=== PATIENT | female | born 1965 | race Caucasian/White ===

== ENCOUNTER 2019-10-18 15:00 | Inpatient (IN) | payer OTHER ==
[~2019-10-18] VITALS: Ht 162.6 cm; Wt 59.6 kg
[~2019-10-18 15:00] MED LIST: Z.0.CRESTOR10 MG PO; Z.0.EFFEXOR XR150 MG PO
[2019-10-18] MEDS ORDERED: SODIUM CHLORIDE 0.9% 1000ML 1,000 ML IV STA ×3 (15:32→17:17)
[2019-10-18] MEDS ORDERED: OCTREOTIDE ACETATE 0.05 MG/ML AMP IV STA (15:42)
[2019-10-18] MEDS ORDERED: PANTOPRAZOLE 40 MG 10ML VIAL IV STA (15:42)
[2019-10-18] MEDS ORDERED: SODIUM CHLORIDE 0.9% 1000ML 1,000 ML ONE ×2 (15:49→17:25)
--- NOTE | 2019-10-18 15:49 | Emergency Department Note ---
History of Present Illnes History of Present Illness Chief Complaint: Abdominal Complaints History of Present Illness This is a 54 year old female . c/o vomiting bright red blood w/ clots this am several times - c/o generalized weakness light headed PATIENT IN FROM HOME WITH COMPLAINTS OF WAKING UP DIZZY AND SHORT OF BREATH, PATIENT STATES SHE HAD BLACK STOOLS X 2 TODAY, ALSO WITH COMPLAINTS OF 5 EPISODES OF VOMITING BRIGHT RED BLOOD AND BLOOD CLOTS. DENIES PAIN. PATIENT ALERT AND ORIENTED, RESP EVEN AND NONLABORED, APPEARS IN NO DISTRESS Historian: Patient Arrival Mode: Car Onset (how long ago): day(s) (today) Radiation: non-radiation, back, neck, extremity, abdomen, periumbilical, flank, proximal, distal, other Onset quality: sudden Duration (how long): day(s) (today) Progression: unchanged Context: recent illness, recent surgery, recent immobilization, recent travel, trauma/injury, new medications, hx of DVT/PE, non-compliance w/ medications, other Relieving factors: none Exacerbating factors: none Associated symptoms: nausea/vomiting, weakness Treatments prior to arrival: none Risk factors: sts takes asprin / alieve daily for headaches (HEATHER LOMELI NP) Past Medical/Family History Physician Review I have reviewed the patient's past medical and family history. Any updates have been documented here. (HEATHER LOMELI NP) Past Medical History Recent Fever: No Clinical Suspicion of Infectio: No New/Unexplained Change in Ment: No Past Medical History: Anxiety, Depression, Other Mental Illness, Hyperlipedemia Other Medical History: HIGH CHOLESTEROL, BIPOLAR HIATAL HERNIA Past Surgical History: Hernia Repair Other Surgery: C/S X 2, HIATIAL HERNIA (HEATHER LOMELI NP) Social History Smoking Cessation: Current some day smoker Counseling Performed: No Alcohol Use: None Any Illegal Drug Use: Yes (MARIJUANA) TB Exposure/Symptoms: No Physically hurt or threatened: No (HEATHER LOMELI NP) Family History Family history of heart diseas: No (HEATHER LOMELI NP) Other Last Tetanus: UTD Any Pre-Existing Lines (PICC,: No Is patient up to date on immun: No Last Flu: UTD Last Pneumovax: OOD (HEATHER LOMELI NP) Review of Systems Review of Systems Constitutional: weakness EENTM: no symptoms Cardiovascular: other (hypotensive); chest pain, edema, palpitations, syncope Respiratory: no symptoms Gastrointestinal: no symptoms Genitourinary: no symptoms Musculoskeletal: no symptoms Neurological: weakness; headache Psychological: no symptoms Endocrine: no symptoms Hematological/Lymphatic: no symptoms Review of other systems All other systems reviewed and negative. (HEATHER LOMELI BUSHING PRESS OPERATOR) Physical Exam Related Data Allergies: Coded Allergies: No Known Drug Allergies (Verified Allergy, Mild, 05/17/11) Triage Vital Signs Vital Signs Date Time Temp Pulse Resp B/P (MAP) Pulse Ox O2 Delivery O2 Flow Rate FiO2 10/18/19 15:00 97.8 84 20 98/67 100 Vital signs reviewed: Yes (HEATHER LOMELI BUSHING PRESS OPERATOR) Physical Exam CONSTITUTIONAL Constitutional: well-developed, well-nourished HENT HENT: normocephalic, atraumatic, oropharynx clear/moist, nose normal HENT L/R: left ext ear normal, right ext ear normal EYES Eyes: PERRL, conjunctivae normal NECK Neck: ROM normal PULMONARY Pulmonary: effort normal, breath sounds normal CARDIOVASCULAR Cardiovascular: regular rhythm, heart sounds normal, capillary refill normal, normal rate GASTROINTESTINAL Abdominal: soft, nontender, bowel sounds normal GENITOURINARY Genitourinary: exam deferred SKIN Skin: dry, pale, other (cool) MUSCULOSKELETAL Musculoskeletal: ROM normal NEUROLOGICAL Neurological: alert, oriented x 3, no gross motor or sensory deficits PSYCHOLOGICAL Psychological: mood/affect normal, judgement normal (HEATHER LOMELI BUSHING PRESS OPERATOR) Results Laboratory Laboratory Laboratory Tests Test 10/18/19 17:50 10/18/19 16:42 10/18/19 15:52 10/18/19 15:30 White Blood Count 13.43 x10e3/uL (4.8-10.8) 10.31 x10e3/uL (4.8-10.8) Red Blood Count 2.52 x10e6/uL (3.6-5.1) 3.35 x10e6/uL (3.6-5.1) Hemoglobin 7.5 g/dL (12.0-16.0) 9.9 g/dL (12.0-16.0) Hematocrit 23.9 % (34.2-44.1) 31.5 % (34.2-44.1) Mean Corpuscular Volume 94.8 fL (81-99) 94.0 fL (81-99) Mean Corpuscular Hemoglobin 29.8 pg (28-32) 29.6 pg (28-32) Mean Corpuscular Hemoglobin Concent 31.4 g/dL (31-35) 31.4 g/dL (31-35) Red Cell Distribution Width 14.1 % (11.7-14.4) 14.2 % (11.7-14.4) Platelet Count 177 x10e3/uL (140-360) 283 x10e3/uL (140-360) Neutrophils (%) (Auto) 86.7 % (38.7-80.0) 61.9 % (38.7-80.0) Lymphocytes (%) (Auto) 8.8 % (18.0-39.1) 31.2 % (18.0-39.1) Monocytes (%) (Auto) 3.6 % (4.4-11.3) 4.9 % (4.4-11.3) Eosinophils (%) (Auto) 0.1 % (0.0-6.0) 1.3 % (0.0-6.0) Basophils (%) (Auto) 0.2 % (0.0-1.0) 0.4 % (0.0-1.0) Neutrophils # (Auto) 11.6 (2.1-6.9) 6.4 (2.1-6.9) Lymphocytes # (Auto) 1.2 (1.0-3.2) 3.2 (1.0-3.2) Monocytes # (Auto) 0.5 (0.2-0.8) 0.5 (0.2-0.8) Eosinophils # (Auto) 0.0 (0.0-0.4) 0.1 (0.0-0.4) Basophils # (Auto) 0.0 (0.0-0.1) 0.0 (0.0-0.1) Absolute Immature Granulocyte (auto 0.08 x10e3/uL (0-0.1) 0.03 x10e3/uL (0-0.1) Urine Color Yellow (YELLOW) Urine Clarity Clear (CLEAR) Urine pH 5 (5 - 7) Urine Specific Ransom 1.020 (1.010-1.025) Urine Protein Negative (NEGATIVE) Urine Glucose (UA) Negative (NEGATIVE) Urine Ketones Negative (NEGATIVE) Urine Blood Small (NEGATIVE) Urine Nitrite Negative (NEGATIVE) Urine Bilirubin Negative (NEGATIVE) Urine Urobilinogen 0.2 mg/dL (0.2 - 1) Urine Leukocyte Esterase Negative (NEGATIVE) Urine RBC 0-5 /HPF (0-5) Urine WBC None /HPF (0-5) Urine Epithelial Cells Rare /LPF (NONE) Urine Bacteria Moderate /HPF (NONE) Urine Hyaline Casts 0-1 (0-1) Prothrombin Time 12.7 seconds (11.9-14.5) Prothromb Time International Ratio 0.90 Activated Partial Thromboplast Time 20.8 seconds (23.8-35.5) Sodium Level 138 mmol/L (136-145) Potassium Level 3.8 mmol/L (3.5-5.1) Chloride Level 105 mmol/L (98-107) Carbon Dioxide Level 19 mmol/L (22-29) Anion Gap 17.8 mmol/L (8-16) Blood Urea Nitrogen 41 mg/dL (7-26) Creatinine 0.86 mg/dL (0.57-1.11) Estimat Glomerular Filtration Rate > 60 ML/MIN (60-) BUN/Creatinine Ratio 48 (6-25) Glucose Level 216 mg/dL (74-118) Calcium Level 8.6 mg/dL (8.4-10.2) Total Bilirubin 0.5 mg/dL (0.2-1.2) Aspartate Amino Transf (AST/SGOT) 18 IU/L (5-34) Alanine Aminotransferase (ALT/SGPT) 11 IU/L (0-55) Alkaline Phosphatase 54 IU/L (40-150) Creatine Kinase 93 IU/L (29-168) Creatine Kinase MB 1.70 ng/mL (0-5.0) Troponin I 0.002 ng/mL (0-0.300) Total Protein 6.4 g/dL (6.5-8.1) Albumin 3.6 g/dL (3.5-5.0) Globulin 2.8 g/dL (2.3-3.5) Albumin/Globulin Ratio 1.3 (0.8-2.0) Amylase Level 48 U/L (25-125) Lipase 11 U/L (8-78) Laboratory Tests Test 5/19/20 16:42 10/18/19 15:52 10/18/19 15:30 Urine Color Yellow (YELLOW) Urine Clarity Clear (CLEAR) Urine pH 5 (5 - 7) Urine Specific Ransom 1.020 (1.010-1.025) Urine Protein Negative (NEGATIVE) Urine Glucose (UA) Negative (NEGATIVE) Urine Ketones Negative (NEGATIVE) Urine Blood Small (NEGATIVE) Urine Nitrite Negative (NEGATIVE) Urine Bilirubin Negative (NEGATIVE) Urine Urobilinogen 0.2 mg/dL (0.2 - 1) Urine Leukocyte Esterase Negative (NEGATIVE) Urine RBC 0-5 /HPF (0-5) Urine WBC None /HPF (0-5) Urine Epithelial Cells Rare /LPF (NONE) Urine Bacteria Moderate /HPF (NONE) Urine Hyaline Casts 0-1 (0-1) White Blood Count 10.31 x10e3/uL (4.8-10.8) Red Blood Count 3.35 x10e6/uL (3.6-5.1) Hemoglobin 9.9 g/dL (12.0-16.0) Hematocrit 31.5 % (34.2-44.1) Mean Corpuscular Volume 94.0 fL (81-99) Mean Corpuscular Hemoglobin 29.6 pg (28-32) Mean Corpuscular Hemoglobin Concent 31.4 g/dL (31-35) Red Cell Distribution Width 14.2 % (11.7-14.4) Platelet Count 283 x10e3/uL (140-360) Neutrophils (%) (Auto) 61.9 % (38.7-80.0) Lymphocytes (%) (Auto) 31.2 % (18.0-39.1) Monocytes (%) (Auto) 4.9 % (4.4-11.3) Eosinophils (%) (Auto) 1.3 % (0.0-6.0) Basophils (%) (Auto) 0.4 % (0.0-1.0) Neutrophils # (Auto) 6.4 (2.1-6.9) Lymphocytes # (Auto) 3.2 (1.0-3.2) Monocytes # (Auto) 0.5 (0.2-0.8) Eosinophils # (Auto) 0.1 (0.0-0.4) Basophils # (Auto) 0.0 (0.0-0.1) Absolute Immature Granulocyte (auto 0.03 x10e3/uL (0-0.1) Prothrombin Time 12.7 seconds (11.9-14.5) Prothromb Time International Ratio 0.90 Activated Partial Thromboplast Time 20.8 seconds (23.8-35.5) Sodium Level 138 mmol/L (136-145) Potassium Level 3.8 mmol/L (3.5-5.1) Chloride Level 105 mmol/L (98-107) Carbon Dioxide Level 19 mmol/L (22-29) Anion Gap 17.8 mmol/L (8-16) Blood Urea Nitrogen 41 mg/dL (7-26) Creatinine 0.86 mg/dL (0.57-1.11) Estimat Glomerular Filtration Rate > 60 ML/MIN (60-) BUN/Creatinine Ratio 48 (6-25) Glucose Level 216 mg/dL (74-118) Calcium Level 8.6 mg/dL (8.4-10.2) Total Bilirubin 0.5 mg/dL (0.2-1.2) Aspartate Amino Transf (AST/SGOT) 18 IU/L (5-34) Alanine Aminotransferase (ALT/SGPT) 11 IU/L (0-55) Alkaline Phosphatase 54 IU/L (40-150) Creatine Kinase 93 IU/L (29-168) Creatine Kinase MB 1.70 ng/mL (0-5.0) Troponin I 0.002 ng/mL (0-0.300) Total Protein 6.4 g/dL (6.5-8.1) Albumin 3.6 g/dL (3.5-5.0) Globulin 2.8 g/dL (2.3-3.5) Albumin/Globulin Ratio 1.3 (0.8-2.0) Amylase Level 48 U/L (25-125) Lipase 11 U/L (8-78) Laboratory Tests Test 10/18/19 15:52 10/18/19 15:30 White Blood Count 10.31 x10e3/uL (4.8-10.8) Red Blood Count 3.35 x10e6/uL (3.6-5.1) Hemoglobin 9.9 g/dL (12.0-16.0) Hematocrit 31.5 % (34.2-44.1) Mean Corpuscular Volume 94.0 fL (81-99) Mean Corpuscular Hemoglobin 29.6 pg (28-32) Mean Corpuscular Hemoglobin Concent 31.4 g/dL (31-35) Red Cell Distribution Width 14.2 % (11.7-14.4) Platelet Count 283 x10e3/uL (140-360) Neutrophils (%) (Auto) 61.9 % (38.7-80.0) Lymphocytes (%) (Auto) 31.2 % (18.0-39.1) Monocytes (%) (Auto) 4.9 % (4.4-11.3) Eosinophils (%) (Auto) 1.3 % (0.0-6.0) Basophils (%) (Auto) 0.4 % (0.0-1.0) Neutrophils # (Auto) 6.4 (2.1-6.9) Lymphocytes # (Auto) 3.2 (1.0-3.2) Monocytes # (Auto) 0.5 (0.2-0.8) Eosinophils # (Auto) 0.1 (0.0-0.4) Basophils # (Auto) 0.0 (0.0-0.1) Absolute Immature Granulocyte (auto 0.03 x10e3/uL (0-0.1) Prothrombin Time 12.7 seconds (11.9-14.5) Prothromb Time International Ratio 0.90 Activated Partial Thromboplast Time 20.8 seconds (23.8-35.5) Lab results reviewed: Yes (HEATHER LOMELI BUSHING PRESS OPERATOR) Imaging Impressions Procedure: [id number] DX/CHEST SINGLE (PORTABLE) Exam Date: 10/18/19 Exam Time: 1541 REPORT STATUS: Signed TECHNIQUE: Frontal view of the chest. INDICATION: ^ERMD ORDER ^[id number] ^1542 ^Y COMPARISON: None. IMPRESSION: Lines and hardware: None. Heart and mediastinum: Unremarkable. Lungs and pleura: No focal airspace consolidation. No pleural effusion. No pneumothorax. Soft tissues and bones: No acute abnormality. Signed by: Buster Carrasco MD on 10/18/2019 4:09 PM Dictated By: BUSTER CARRASCO DO 08 Transcribed By: MIRNA on 10/18/19 160 (HEATHER LOMELI NP) Procedures 12 Lead ECG Interpretation Mobile Phone Salesperson: Interpreted by ED physician (dr colmenares) Date: October 18, 2019 Time: 16:12 Prior VOLLEYBALL PLAYER tracings: reviewed Rhythm: sinus rhythm Rate: normal BPM: 84 QRS axis: normal Clinical Impression: normal ECG (HEATHER LOMELI BUSHING PRESS OPERATOR) Critical Care Time Total Critical Care Time (min): 35 Critcal care necessary due to: circulatory failure Subsequent provider I assumed direction of critical care for this patient from another provider of my specialty. Comments dr colmenares (HEATHER LOMELI BUSHING PRESS OPERATOR) Assessment & Plan Reassessment Reassessment 54 f presented to ed c/o vomiting blood several times this am generalized weakness light headed - Dr colmenares un eval pt status - lab type screen ekg ordered - pt medicated w/ protonix 80mg / ns 2 liter bolus /octreotide (HEATHER LOMELI NP) Assessment & Plan Final Impression: (1) GI bleed Assessment & Plan Dr Colmenares in eval pt status discussed lab results plan of care and need for admit Dr Colmenares spoke w/ Dr Jun Tijerina will admit - Spoke w/ Dr Karishma Tijerina will consult (HEATHER LOMELI NP) Depart Disposition: ADMITTED Last Vital Signs Date Time Temp Pulse Resp B/P (MAP) Pulse Ox O2 Delivery O2 Flow Rate FiO2 10/18/19 15:00 97.8 84 20 98/67 100 (HEATHER LOMELI BUSHING PRESS OPERATOR) Home Meds Discontinued Reported Medications Rosuvastatin Calcium (Crestor) 10 Mg Tablet, 10 MG PO RDAILY 05/16/11 Venlafaxine Hcl (Effexor Xr) 150 Mg Cap.sr.24h, 150 MG PO RDAILY 05/16/11 Medications in the ED Sodium Chloride 1,000 ml @ 0 mls/hr Q0M STAT IV ; Start 10/18/19 at 15:32; Stop 10/18/19 at 15:33 Pantoprazole Sodium 40 mg ONCE ONCE IV ; Start 10/18/19 at 16:00; Stop 10/18/19 at 16:01 (HEATHER LOMELI BUSHING PRESS OPERATOR) Physician Attestation Provider Attestation The patient's history, exam findings, diagnostics, and a summary of any interventions or procedures was reviewed in detail with our GISSELL. I personally interviewed and examined the patient, and I have reviewed and agree with the HPI andexam. She has no significant PMHx but does take Excedrin daily for aches/pa ins. My personal exam shows no abd tenderness, CV- RRR, L- CTA bilat. I confirm the diagnosis as documented by the GISSELL. I have reviewed and agree with the care plan articulated in the disposition section. Pt did drop BP which responded to IVF's. Repeat CBC shows significant drop in HgB - my concern is for bleeding ulcer (gastric or esophageal) so I gave Protonix IV and Octreotide bolus and IV drip, discussed with Dr Jun Tijerina and Dr Karishma Tijerina and we all agree that pt requires blood transfusion. Admit IMCU (FARHAT COLMENARES MD) HEATHER LOMELI NP October 18, 2019 15:49 FARHAT COLMENARES MD October 22, 2019 07:53
[2019-10-18] MEDS ORDERED: PANTOPRAZOLE 40 MG 10ML VIAL IV ONE (16:00)
--- NOTE | 2019-10-18 16:12 | Diagnostic Imaging Report ---
TECHNIQUE: Frontal view of the chest. INDICATION: ^ERMD ORDER ^[id number] ^1542 ^Y COMPARISON: None. IMPRESSION: Lines and hardware: None. Heart and mediastinum: Unremarkable. Lungs and pleura: No focal airspace consolidation. No pleural effusion. No pneumothorax. Soft tissues and bones: No acute abnormality. Signed by: Buster Carrasco MD on 10/18/2019 4:09 PM
[2019-10-18 16:23] LABS: BASOPHILS % 0.4 % (0.0-1.0); EOSINOPHILS # (AUTO) 0.1 (0.0-0.4); EOSINOPHILS % 1.3 % (0.0-6.0); HEMATOCRIT 31.5 % (34.2-44.1); HEMOGLOBIN 9.9 g/dL (12.0-16.0); LYMPHOCYTES # (AUTO) 3.2 (1.0-3.2); LYMPHOCYTES % 31.2 % (18.0-39.1); MEAN CORPUSCULAR HEMOGLOBIN 29.6 pg (28-32); MEAN CORPUSCULAR HGB CONC 31.4 g/dL (31-35); MONOCYTES # (AUTO) 0.5 (0.2-0.8); MONOCYTES % 4.9 % (4.4-11.3); NEUTROPHILS # (AUTO) 6.4 (2.1-6.9); NEUTROPHILS % 61.9 % (38.7-80.0); PLATELET COUNT 283 x10e3/uL (140-360); RED BLOOD COUNT 3.35 x10e6/uL (3.6-5.1); RED CELL DISTRIBUTION WIDTH 14.2 % (11.7-14.4)
[2019-10-18 16:35] LABS: INR 0.9; PROTHROMBIN TIME 12.7 seconds (11.9-14.5)
[2019-10-18 16:37] LABS: PARTIAL THROMBOPLASTIN TIME 20.8 seconds (23.8-35.5)
[2019-10-18] MEDS: OCTREOTIDE ACETATE 500 MCG in SODIUM CHLORIDE 0.9% 250ML 249 ML IV SCH (16:45)
[2019-10-18 16:47] LABS: ALANINE AMINOTRANSFERASE 11 IU/L (0-55); ALBUMIN 3.6 g/dL (3.5-5.0); ALBUMIN/GLOBULIN RATIO 1.3 (0.8-2.0); ALKALINE PHOSPHATASE 54 IU/L (40-150); AMYLASE 48 U/L (25-125); ANION GAP 17.8 mmol/L (8-16); BLOOD UREA NITROGEN 41 mg/dL (7-26); BUN/CREATININE RATIO 48 (6-25); CALCIUM 8.6 mg/dL (8.4-10.2); CARBON DIOXIDE 19 mmol/L (22-29); CHLORIDE 105 mmol/L (98-107); CREATINE KINASE 93 IU/L (29-168); CREATININE, SERUM 0.86 mg/dL (0.57-1.11); EST GLOMERULAR FILTRATION RATE > 60 ML/MIN (60-); GLUCOSE 216 mg/dL (74-118); LIPASE 11 U/L (8-78); POTASSIUM 3.8 mmol/L (3.5-5.1); SODIUM 138 mmol/L (136-145)
[2019-10-18 17:01] LABS: BILIRUBIN,URINE NEGATIVE (NEGATIVE); CLARITY,URINE CLEAR (CLEAR); COLOR,URINE YELLOW (YELLOW); KETONES,URINE NEGATIVE (NEGATIVE); LEUKOCYTE ESTERASE ,URINE NEGATIVE (NEGATIVE); NITRITE,URINE NEGATIVE (NEGATIVE); PROTEIN,URINE DIPSTICK NEGATIVE (NEGATIVE); URINE UROBILINOGEN 0.2 mg/dL (0.2 - 1)
[2019-10-18 17:10] LABS: BACTERIA,URINE MODERATE /HPF; EPITHELIAL CELLS,URINE RARE /LPF; HYALINE CASTS 0-1 (0-1); RBC,URINE 0-5 /HPF (0-5)
[2019-10-18 17:59] LABS: BASOPHILS % 0.2 % (0.0-1.0); EOSINOPHILS % 0.1 % (0.0-6.0); HEMATOCRIT 23.9 % (34.2-44.1); HEMOGLOBIN 7.5 g/dL (12.0-16.0); LYMPHOCYTES # (AUTO) 1.2 (1.0-3.2); LYMPHOCYTES % 8.8 % (18.0-39.1); MEAN CORPUSCULAR HEMOGLOBIN 29.8 pg (28-32); MEAN CORPUSCULAR HGB CONC 31.4 g/dL (31-35); MEAN CORPUSCULAR VOLUME 94.8 fL (81-99); MONOCYTES # (AUTO) 0.5 (0.2-0.8); MONOCYTES % 3.6 % (4.4-11.3); NEUTROPHILS # (AUTO) 11.6 (2.1-6.9); NEUTROPHILS % 86.7 % (38.7-80.0); PLATELET COUNT 177 x10e3/uL (140-360); RED BLOOD COUNT 2.52 x10e6/uL (3.6-5.1); RED CELL DISTRIBUTION WIDTH 14.1 % (11.7-14.4)
--- NOTE | 2019-10-18 18:32 | NUR ---
pt signed consent for blood transfusion
[2019-10-18] MEDS ORDERED: SODIUM CHLORIDE 0.9% 250ML 250 ML IV ONE (19:00)
--- OUTSIDE RECORDS SUMMARY | 2019-10-18 19:16 | XMS REPORT ---
Author Author [facility] t Organization [facility] Address [address] [place] [id number] Phone Unavailable Care Team Providers Care Retail Sales Clerk Name Role Phone Emily COLMENARES Attphys Unavailable Problems This patient has no known problems. Allergies, Adverse Reactions, Alerts This patient has no known allergies or adverse reactions. Medications This patient has no known medications. Procedures This patient has no known procedures. Results Test Description Test Time Test Comments Results Result Comments Source CHEST SINGLE (PORTABLE) 2019-10-18 16:07:00 [place] [address] Patient Name: MARTY EDMONDS MR #: [id number] : 1965 Age/Sex: 54/F Req #: [id number] Adm Physician: Ordered by: HEATHER LOMELI COORDINATOR OF GENETIC SERVICES Report #: [id number] Location: ER Room/Bed: Procedure: [id number] DX/CHEST SINGLE (PORTABLE) Exam Date: 10/18/19 Exam Time: 1541 REPORT STATUS: Signed TECHNIQUE: Frontal view of the chest. INDICATION: ERMD ORDER [id number] 1542 Y COMPARISON: None. IMPRESSION: Lines and hardware: None. Heart and mediastinum: Unremarkable. Lungs and pleura: No focal airspace consolidation. No pleural effusion. No pneumothorax. Soft tissues and bones: No acute abnormality. Signed by: Buster Carrasco MD on 10/18/2019 4:09 PM Dictated By: BUSTER CARRASCO DO 1600 Transcribed By: MIRNA on 10/18/19 1604 COPY TO: HEATHER LOMELI NP
[2019-10-18 19:30] VITALS: BP 110/51
[2019-10-18 20:00] VITALS: BP 102/58
[2019-10-18 21:00] VITALS: BP 116/64
[2019-10-18] MEDS: SODIUM CHLORIDE 0.9% 1000ML 1,000 ML IV SCH (21:25)
[2019-10-18] MEDS: PANTOPRAZOLE 40 MG 10ML VIAL IV SCH (21:25)
[2019-10-18 21:59] VITALS: BP 110/51
[2019-10-18 22:00] VITALS: BP 113/69
[2019-10-18 23:00] VITALS: BP 118/59
[2019-10-19] VITALS (21 sets, daily range): BP systolic 105–133; BP diastolic 46–79
[2019-10-19] MEDS ORDERED: OCTREOTIDE ACETATE 1 ML ONE (03:06)
[2019-10-19] MEDS ORDERED: SODIUM CHLORIDE 0.9% 250ML 250 ML ONE (03:07)
[2019-10-19] MEDS: SODIUM CHLORIDE 0.9% 1000ML 1,000 ML IV SCH (04:28)
[2019-10-19] MEDS: OCTREOTIDE ACETATE 500 MCG in SODIUM CHLORIDE 0.9% 250ML 249 ML IV SCH (04:28)
[2019-10-19 04:58] LABS: BASOPHILS % 0.3 % (0.0-1.0); EOSINOPHILS % 0.6 % (0.0-6.0); HEMATOCRIT 31.8 % (34.2-44.1); HEMOGLOBIN 10.4 g/dL (12.0-16.0); LYMPHOCYTES # (AUTO) 2.4 (1.0-3.2); LYMPHOCYTES % 36.5 % (18.0-39.1); MEAN CORPUSCULAR HEMOGLOBIN 30.2 pg (28-32); MEAN CORPUSCULAR HGB CONC 32.7 g/dL (31-35); MEAN CORPUSCULAR VOLUME 92.4 fL (81-99); MONOCYTES # (AUTO) 0.6 (0.2-0.8); MONOCYTES % 9.5 % (4.4-11.3); NEUTROPHILS # (AUTO) 3.4 (2.1-6.9); NEUTROPHILS % 52.6 % (38.7-80.0); PLATELET COUNT 151 x10e3/uL (140-360); RED BLOOD COUNT 3.44 x10e6/uL (3.6-5.1); RED CELL DISTRIBUTION WIDTH 13.8 % (11.7-14.4)
[2019-10-19 05:20] LABS: ANION GAP 10.7 mmol/L (8-16); BLOOD UREA NITROGEN 22 mg/dL (7-26); BUN/CREATININE RATIO 33 (6-25); CALCIUM 7.6 mg/dL (8.4-10.2); CARBON DIOXIDE 20 mmol/L (22-29); CHLORIDE 114 mmol/L (98-107); CREATININE, SERUM 0.67 mg/dL (0.57-1.11); EST GLOMERULAR FILTRATION RATE > 60 ML/MIN (60-); GLUCOSE 87 mg/dL (74-118); POTASSIUM 3.7 mmol/L (3.5-5.1); SODIUM 141 mmol/L (136-145)
[2019-10-19] MEDS: PANTOPRAZOLE 40 MG 10ML VIAL IV SCH ×2 (08:25→22:41)
[2019-10-19 12:17] LABS: BASOPHILS % 0.4 % (0.0-1.0); EOSINOPHILS % 0.4 % (0.0-6.0); HEMATOCRIT 31.5 % (34.2-44.1); HEMOGLOBIN 10.5 g/dL (12.0-16.0); LYMPHOCYTES # (AUTO) 1.8 (1.0-3.2); MEAN CORPUSCULAR HEMOGLOBIN 30.3 pg (28-32); MEAN CORPUSCULAR HGB CONC 33.3 g/dL (31-35); MEAN CORPUSCULAR VOLUME 90.8 fL (81-99); MONOCYTES # (AUTO) 0.5 (0.2-0.8); MONOCYTES % 8.5 % (4.4-11.3); NEUTROPHILS # (AUTO) 3.3 (2.1-6.9); NEUTROPHILS % 58.5 % (38.7-80.0); PLATELET COUNT 162 x10e3/uL (140-360); RED BLOOD COUNT 3.47 x10e6/uL (3.6-5.1); RED CELL DISTRIBUTION WIDTH 14.3 % (11.7-14.4)
--- NOTE | 2019-10-19 13:50 | NUR ---
patient transported to endo for procedure
[2019-10-19 18:15] LABS: BASOPHILS % 0.5 % (0.0-1.0); EOSINOPHILS % 0.7 % (0.0-6.0); HEMATOCRIT 33.8 % (34.2-44.1); HEMOGLOBIN 11.1 g/dL (12.0-16.0); LYMPHOCYTES # (AUTO) 1.6 (1.0-3.2); LYMPHOCYTES % 26.4 % (18.0-39.1); MEAN CORPUSCULAR HEMOGLOBIN 29.9 pg (28-32); MEAN CORPUSCULAR HGB CONC 32.8 g/dL (31-35); MEAN CORPUSCULAR VOLUME 91.1 fL (81-99); MONOCYTES # (AUTO) 0.5 (0.2-0.8); MONOCYTES % 7.7 % (4.4-11.3); NEUTROPHILS # (AUTO) 3.9 (2.1-6.9); NEUTROPHILS % 64.4 % (38.7-80.0); PLATELET COUNT 165 x10e3/uL (140-360); RED BLOOD COUNT 3.71 x10e6/uL (3.6-5.1); RED CELL DISTRIBUTION WIDTH 14.2 % (11.7-14.4)
[2019-10-19] MEDS ORDERED: LIDOCAINE HCL 2% LOCAL INJ 5 ML SDV VIAL INJ ONE (18:21)
[2019-10-19] MEDS ORDERED: PROPOFOL IV EMULSION 10 MG/ML 20 ML VIAL ONE (18:21)
[2019-10-19] MEDS: ACETAMINOPHEN 325 MG TAB PO PRN (18:22)
[2019-10-19] MEDS: ONDANSETRON HCL INJ 2MG/ML 2ML 2 MG/ML VIAL IV PRN (18:22)
[2019-10-19] MEDS ORDERED: FENTANYL CITRATE/PF 100MCG/2 ML INJ ONE (18:45)
[2019-10-19] MEDS ORDERED: MIDAZOLAM HCL 2 MG/2 ML VIAL ONE (18:45)
--- NOTE | 2019-10-19 19:22 | NUR ---
Received the patient from ICU @ 8497 report given from criss. Patient in stable condition, no s/s of distress noted. Telemetry applied and working. Bed in lowest position and locked. Call light within reach.
--- NOTE | 2019-10-19 19:25 | NUR ---
RECEIVED BEDSIDE SHIFT REPORT FROM DAY RN. PT IS ALERT AND ORIENTED X3. TELE ON. RESPIRATIONS ARE EVEN AND UNLABORED. SL 20 G RT AC AND 20 SG SL LT AC. DENIES PAIN. VOIDING IN BATHROOM - AMBULATE TO BR. PT IN SEMI-FOWLERS POSITION WATCHING TV. CBC TO BE DONE AT 0000.- Q 6 HRS. CALL LIGHT WITHIN REACH. BED IN LOW POSITION.
[2019-10-19] MEDS: CRESTOR 10MG PO SCH (22:41)
[2019-10-20] VITALS (8 sets, daily range): BP systolic 123–144; BP diastolic 67–74
[2019-10-20] MEDS: ACETAMINOPHEN 325 MG TAB PO PRN ×2 (00:28→08:31)
[2019-10-20] MEDS: ONDANSETRON HCL INJ 2MG/ML 2ML 2 MG/ML VIAL IV PRN ×2 (00:28→11:53)
--- NOTE | 2019-10-20 00:42 | NUR ---
PT C/O OF HEADACHE. PT GIVEN TYLENOL ORDERED. PT REPORT FEELING NAUSEATED. PT HAD 100 ML EMESIS OF CLEAR LIQUID WITH BLACK FLECKS. DR SERRANO NOTIFIED.NEW ORDERS RECEIVED FOR PROTONIX [address] ON PROTONIX DRIP.HGB AT 0042 10.9 HCT 32.5
[2019-10-20 00:57] LABS: BASOPHILS % 0.4 % (0.0-1.0); EOSINOPHILS # (AUTO) 0.1 (0.0-0.4); EOSINOPHILS % 0.8 % (0.0-6.0); HEMATOCRIT 32.5 % (34.2-44.1); HEMOGLOBIN 10.9 g/dL (12.0-16.0); LYMPHOCYTES # (AUTO) 2.2 (1.0-3.2); LYMPHOCYTES % 30.8 % (18.0-39.1); MEAN CORPUSCULAR HEMOGLOBIN 29.9 pg (28-32); MEAN CORPUSCULAR HGB CONC 33.5 g/dL (31-35); MEAN CORPUSCULAR VOLUME 89.3 fL (81-99); MONOCYTES # (AUTO) 0.5 (0.2-0.8); MONOCYTES % 7.4 % (4.4-11.3); NEUTROPHILS # (AUTO) 4.4 (2.1-6.9); NEUTROPHILS % 60.3 % (38.7-80.0); PLATELET COUNT 183 x10e3/uL (140-360); RED BLOOD COUNT 3.64 x10e6/uL (3.6-5.1); RED CELL DISTRIBUTION WIDTH 13.9 % (11.7-14.4)
[2019-10-20] MEDS ORDERED: PANTOPRAZOLE 40 MG 10ML VIAL IV STA (01:27)
[2019-10-20] MEDS: PANTOPRAZOLE INJ 40 MG in SODIUM CHLORIDE 0.9% 50ML 50 ML IV SCH ×4 (01:53→17:04)
[2019-10-20 05:12] LABS: BASOPHILS % 0.4 % (0.0-1.0); EOSINOPHILS # (AUTO) 0.1 (0.0-0.4); EOSINOPHILS % 0.9 % (0.0-6.0); HEMATOCRIT 30.9 % (34.2-44.1); HEMOGLOBIN 10.2 g/dL (12.0-16.0); LYMPHOCYTES # (AUTO) 1.8 (1.0-3.2); LYMPHOCYTES % 31.9 % (18.0-39.1); MEAN CORPUSCULAR VOLUME 90.9 fL (81-99); MONOCYTES # (AUTO) 0.3 (0.2-0.8); MONOCYTES % 5.5 % (4.4-11.3); NEUTROPHILS # (AUTO) 3.5 (2.1-6.9); NEUTROPHILS % 61.1 % (38.7-80.0); PLATELET COUNT 162 x10e3/uL (140-360); RED CELL DISTRIBUTION WIDTH 13.9 % (11.7-14.4)
--- NOTE | 2019-10-20 07:00 | NUR ---
BEDSIDE SHIFT REPORT RECEIVED FROM SLITTER HELPER RN. PT DENIES NEEDS AT THIS TIME.
[2019-10-20] MEDS: VENLAFAXINE HCL 75 MG CAPCR PO SCH ×2 (08:31→08:42)
[2019-10-20] MEDS: ACETAMIN/BUTALBITAL/CAFFEINE TAB PO PRN (11:50)
[2019-10-20 12:06] LABS: BASOPHILS % 0.4 % (0.0-1.0); EOSINOPHILS # (AUTO) 0.1 (0.0-0.4); EOSINOPHILS % 0.9 % (0.0-6.0); HEMATOCRIT 33.1 % (34.2-44.1); HEMOGLOBIN 11.2 g/dL (12.0-16.0); LYMPHOCYTES # (AUTO) 1.8 (1.0-3.2); LYMPHOCYTES % 23.4 % (18.0-39.1); MEAN CORPUSCULAR HEMOGLOBIN 30.3 pg (28-32); MEAN CORPUSCULAR HGB CONC 33.8 g/dL (31-35); MEAN CORPUSCULAR VOLUME 89.5 fL (81-99); MONOCYTES # (AUTO) 0.6 (0.2-0.8); MONOCYTES % 7.4 % (4.4-11.3); NEUTROPHILS # (AUTO) 5.3 (2.1-6.9); NEUTROPHILS % 67.6 % (38.7-80.0); PLATELET COUNT 190 x10e3/uL (140-360); RED CELL DISTRIBUTION WIDTH 13.5 % (11.7-14.4)
--- NOTE | 2019-10-20 19:35 | NUR ---
BEDSIDE SHIFT REPORT RECEIVED FROM DAY RN. PT IS ALERT AND ORIENTED X3. RESPIRATIONS ARE EVEN AND UNLABORED. TELE ON. SL 20 G RT AC. 20 G SL LEFT AC. PROTONIX DRIP SWITCHED TO RT AC- IV HURTING IN LEFT AC. IV D/C WITH CATH INTACT.PRESSURE DRESSING TO SITE.DENIES NAUSEA. NO EMESIS REPORTED. PT IN SEMIFOWLERS POSITION WATCHIING TV. CALL LIGHT WITHIN REACH. BED IN LOW POSITION.
[2019-10-20 20:36] LABS: BASOPHILS % 0.2 % (0.0-1.0); EOSINOPHILS # (AUTO) 0.1 (0.0-0.4); EOSINOPHILS % 0.8 % (0.0-6.0); HEMATOCRIT 30.7 % (34.2-44.1); HEMOGLOBIN 10.6 g/dL (12.0-16.0); LYMPHOCYTES # (AUTO) 1.9 (1.0-3.2); LYMPHOCYTES % 22.4 % (18.0-39.1); MEAN CORPUSCULAR HEMOGLOBIN 30.8 pg (28-32); MEAN CORPUSCULAR HGB CONC 34.5 g/dL (31-35); MEAN CORPUSCULAR VOLUME 89.2 fL (81-99); MONOCYTES # (AUTO) 0.7 (0.2-0.8); MONOCYTES % 8.7 % (4.4-11.3); NEUTROPHILS # (AUTO) 5.7 (2.1-6.9); NEUTROPHILS % 67.5 % (38.7-80.0); PLATELET COUNT 174 x10e3/uL (140-360); RED BLOOD COUNT 3.44 x10e6/uL (3.6-5.1); RED CELL DISTRIBUTION WIDTH 13.5 % (11.7-14.4)
[2019-10-20] MEDS: CRESTOR 10MG PO SCH (21:04)
[2019-10-20] MEDS: PANTOPRAZOLE SOD 40 MG TABEC PO SCH (23:55)
[2019-10-21] VITALS: BP 123/67
[2019-10-21] MEDS: PANTOPRAZOLE SOD 40 MG TABEC PO SCH ×2 (00:42→08:36)
--- NOTE | 2019-10-21 01:00 | NUR ---
DR NATH HERE. IV D/C LEAKING. DR NATH D/C PROTONIX DRIP AND GIVE ORDERS FOR PO PROTONIX BID. CBC DAILY. FIORICET GIVEN FOR HEADACHE- EFFECTIVE TO DECREASE PAIN. NO EMESIS. DIET CHANGED TO GI SOFT. PT REPORT LOOSE STOOLS. WILL CONTINUE TO MONITOR. OK TO LEAVE IV OUT PER DR NATH.
[2019-10-21 04:00] VITALS: BP 130/63
[2019-10-21 05:28] LABS: BASOPHILS % 0.4 % (0.0-1.0); EOSINOPHILS # (AUTO) 0.1 (0.0-0.4); EOSINOPHILS % 1.5 % (0.0-6.0); HEMATOCRIT 29.5 % (34.2-44.1); LYMPHOCYTES # (AUTO) 2.4 (1.0-3.2); LYMPHOCYTES % 31.7 % (18.0-39.1); MEAN CORPUSCULAR HEMOGLOBIN 29.9 pg (28-32); MEAN CORPUSCULAR HGB CONC 33.9 g/dL (31-35); MEAN CORPUSCULAR VOLUME 88.3 fL (81-99); MONOCYTES # (AUTO) 0.6 (0.2-0.8); MONOCYTES % 8.1 % (4.4-11.3); NEUTROPHILS # (AUTO) 4.3 (2.1-6.9); PLATELET COUNT 179 x10e3/uL (140-360); RED BLOOD COUNT 3.34 x10e6/uL (3.6-5.1); RED CELL DISTRIBUTION WIDTH 13.3 % (11.7-14.4)
[2019-10-21 06:03] LABS: BLOOD UREA NITROGEN 8 mg/dL (7-26); BUN/CREATININE RATIO 11 (6-25); CALCIUM 8.5 mg/dL (8.4-10.2); CARBON DIOXIDE 27 mmol/L (22-29); CHLORIDE 106 mmol/L (98-107); EST GLOMERULAR FILTRATION RATE > 60 ML/MIN (60-); GLUCOSE 96 mg/dL (74-118); SODIUM 140 mmol/L (136-145)
[2019-10-21 08:34] VITALS: BP 113/61
[2019-10-21] MEDS: VENLAFAXINE HCL 75 MG CAPCR PO SCH (08:36)
[2019-10-21] MEDS ORDERED: POTASSIUM CHLORIDE 20 MEQ TAB CR PO ONE (08:40)
[2019-10-21 08:47] VITALS: BP 113/61
--- NOTE | 2019-10-21 10:30 | NUR ---
Pt sleeping soundly and no family present. Pack Worker Supervisor left a card describing availability of senior credit officer and instructions on how to contact a senior credit officer. ABHAY CRAFT Pack Worker Supervisor Spiritual Care Department O: [phone]
[2019-10-21] MEDS: ACETAMIN/BUTALBITAL/CAFFEINE TAB PO PRN (10:54)
[2019-10-21] MEDS: POTASSIUM CHLORIDE 20 MEQ TAB CR PO SCH ×2 (11:03→13:10)
[2019-10-21 11:50] VITALS: BP 110/71
--- NOTE | 2019-10-21 16:51 | NUR ---
Dr. Bill Tijerina wrote a discharge order once patient had a stat potassium draw. Patient's potassium is 4.1, Dr. Bill Tijerina said to discharge patient. Patient was given written instructions and explained everything. Patient verbalized understanding and had no questions. Patient did not have an IV and was brought to the car by this sba underwriter.
== END 2019-10-21 16:33 | disposition home or self-care (01) | DRG 378 ==
LOC: ER 15:00 → ERHOLD 18:51 → ICU 19:55 → MED/SURG2 10-19 18:50
PROC: 30233N1 Transfusion of Nonautologous Red Blood Cells into Peripheral Vein, Percutaneous Approach (ICD-10-PCS; 2019-10-18)
PROC: 0DB78ZX Excision of Stomach, Pylorus, Via Natural or Artificial Opening Endoscopic, Diagnostic (ICD-10-PCS; principal; 2019-10-19 14:03)
DX: K25.4 Chronic or unspecified gastric ulcer with hemorrhage (principal); D62 Acute posthemorrhagic anemia; K20.9 Esophagitis, unspecified; K44.9 Diaphragmatic hernia without obstruction or gangrene; E78.5 Hyperlipidemia, unspecified; F32.9 Major depressive disorder, single episode, unspecified
CPT/HCPCS: 36415; 43239; 51701; 71045; 80048; 80053; 81001; 82150; 82550; 82553; 83690; 84132; 84484; 85025; 85610; 85730; 86850; 86900; 86920; 87040; 87086; 87635; 88305; 88312; 93005; 99284; J2001; J2250; J2353; J2354; J2405; J3010; J7030; J7050; P9016